=== PATIENT | female | born 1980 | race Caucasian/White ===

== ENCOUNTER 2019-07-20 20:07 | Emergency (ER) | payer SELFPAY ==
[~2019-07-20] VITALS: Ht 162.6 cm; Wt 53.0 kg
[2019-07-20 20:18] VITALS: BP 107/71
== END 2019-07-20 23:56 | disposition left against medical advice (07) ==
LOC: ER 20:07
DX: Z53.21 Procedure and treatment not carried out due to patient leaving prior to being seen by health care provider (principal)